=== PATIENT | female | born 1990 | race Caucasian/White ===

== ENCOUNTER 2016-10-06 14:10 | Emergency (ER) | payer BC, OTHER ==
[~2016-10-06] VITALS: Ht 185.4 cm; Wt 127.0 kg
[2016-10-06] MEDS ORDERED: TRINESSA1 EACH PO (14:34)
[2016-10-06] MEDS ORDERED: PRILOSEC 20 MG20 MG PO (14:35)
[2016-10-06] MEDS ORDERED: UNICOMPLEX M TA1 TA1 PO (14:35)
[2016-10-06] MEDS ORDERED: ZYRTEC10 M4 PO (14:36)
[2016-10-06] MEDS ORDERED: EPIPEN0.3 MG/0.1 IJ (16:15)
[2016-10-06 16:45] VITALS: BP 147/81
== END 2016-10-06 16:46 | disposition home or self-care (01) ==
LOC: ER 14:10
DX: T78.1XXA Other adverse food reactions, not elsewhere classified, initial encounter (principal); X58.XXXA Exposure to other specified factors, initial encounter

== ENCOUNTER 2017-04-14 18:16 | Emergency (ER) | payer BC, OTHER ==
[~2017-04-14] VITALS: Ht 185.4 cm; Wt 140.6 kg
--- NOTE | ~2017-04-14 | EKG ---
[address] [place] [address] ELECTROCARDIOGRAM REPORT Name: KEVIN MONTE Room #: [facility]P [facility]ENTERHallieHallie#: [id number] Admission: 04/14/17 Attend Phys: Discharge: 04/14/17 Date of : 89 Report #: [id number] THIS REPORT FOR: //name// [facility] ED Test Date: 2017-04-14 Test Time: 19:15:47 Pat Name: KEVIN MONTE Department: Room: Gender: F Twister Doffer: WILLIAMS : 1990 Requested By: Catalina Williamson Order Number: [id number] MD: Anthony Kelley Measurements Intervals [place] Rate: 94 P: 12 CO: 156 QRS: 12 QRSD: 96 T: 7 QT: 363 QTc: 454 Interpretive Statements Sinus rhythm Probable left ventricular hypertrophy No previous ECG available for comparison Electronically Signed On 04-15-2017 8:50:56 SIGNAL APPRENTICE by Anthony Kelley [email or web address] <ELECTRONICALLY SIGNED> By: Anthony Kelley MD, [facility] 04/15/17 0850 1915 14 Anthony Kelley MD, FAC /EPI
[~2017-04-14 18:16] MED LIST: EPIPEN0.3 MG/0.1 IJ; PRILOSEC 20 MG20 MG PO; TRINESSA1 EACH PO; UNICOMPLEX M TA1 TA1 PO; ZYRTEC10 M4 PO
[2017-04-14] MEDS ORDERED: TRAMADOL 50 MG50 MG PO (18:38)
[2017-04-14 19:25] LABS: URINE BILIRUBIN NEGATIVE (Negative); URINE BLOOD 2+ (Negative); URINE CLARITY CLEAR; URINE COLOR YELLOW; URINE GLUCOSE-RANDOM* NEGATIVE (Negative); URINE KETONES NEGATIVE (Negative); URINE LEUKOCYTES NEGATIVE (Negative); URINE NITRITE NEGATIVE (Negative); URINE PROTEIN (DIPSTICK) NEGATIVE (Negative); URINE SPECIFIC GRAVITY >= 1.030 (1.005-1.035); URINE UROBILINOGEN 0.2 E.U./dl (0.2-1.0)
[2017-04-14 19:26] LABS: ABSOLUTE NEUTROPHILS 7.9 thou/uL (1.4-8.2); BASOPHILS 0.4 % (0.0-2.0); EOSINOPHILS 0.6 % (0.0-3.0); HEMATOCRIT 36.4 % (37.0-47.0); HEMOGLOBIN 11.8 gm/dL (12.0-15.0); LYMPHOCYTES 25.9 % (24.0-44.0); MCHC 32.4 g/dL (28.0-37.0); MCV 80.3 fL (80.0-100.0); MONOCYTES 5.3 % (1.0-8.0); PLATELET COUNT 240 thou/uL (150-400); POLYS 67.8 % (36.0-66.0); RBC 4.53 mil/uL (4.20-5.00); RDW 15.4 % (10.5-14.5); WBC 11.7 thou/uL (4.0-11.0)
[2017-04-14 19:31] LABS: SQUAMOUS 0-3 Few /LPF (0-3); URINE RBC 3-10 Few /HPF (0-2); URINE WBC 0-5 Rare /HPF (0-5)
[2017-04-14 19:32] LABS: BACTERIA >30 Many /HPF (None Seen); CASTS None Seen /LPF (None Seen); CRYSTALS None Seen /LPF (None Seen)
[2017-04-14 19:33] LABS: ANION GAP 12 mmol/L (7-16); BUN 18 mg/dL (7-18); CALCIUM 9.5 mg/dL (8.5-10.1); CHLORIDE 103 mmol/L (98-107); CO2 23 mmol/L (21-32); CREATININE 0.7 mg/dL (0.6-1.0); GLUCOSE 90 mg/dL (74-106); POTASSIUM 3.8 mmol/L (3.5-5.1); SODIUM 138 mmol/L (136-145)
[2017-04-14 19:39] LABS: ALBUMIN 3.4 g/dL (3.4-5.0); DIRECT BILIRUBIN < 0.1 mg/dL (<0.1-0.3); LIPASE 110 U/L (73-393); SGOT 22 U/L (15-37); SGPT 22 U/L (30-65); TOTAL BILIRUBIN 0.1 mg/dL (<0.1-1.0); TOTAL PROTEIN 7.8 g/dL (6.4-8.2)
== END 2017-04-14 20:51 | disposition home or self-care (01) ==
LOC: ER 18:16
PROVIDERS: Physician Assistant
DX: E86.0 Dehydration (principal); J45.909 Unspecified asthma, uncomplicated